=== PATIENT | male | born 1960 | race Caucasian/White ===

== ENCOUNTER 2024-04-01 13:02 | Emergency (ER) | payer OTHER, SELFPAY ==
[2024-04-01] VITALS (14 sets, daily range): BP systolic 120–127; BP diastolic 64–78; PULSE 57–115; RESP 10–21; TEMP 36.4–36.6; O2SAT 96–100
--- NOTE | 2024-04-01 13:00 | RT.EKG_ITS ---
APPROVED REPORT Exam: Resting ECG Reason for Exam: dizzy/syncope Patient Location: E HR:62 bpm ECG Measurements Heart Rate 62 AXIS PA 179 P 17 QRSd 79 QRS -11 QT 404 T 41 QTc 411 Conclusion Sinus rhythm...normal P axis, V-rate 60- 99 I have reviewed and interpreted ECG and agree with software generated interpretation.
--- NOTE | 2024-04-01 13:30 | DI.CT_ITS ---
Exam(s) CT BRAIN NECK CTA EXAM: CT BRAIN NECK CTA CLINICAL HISTORY: Dizzy, vertigo, evaluate for cerebellar infarct. TECHNIQUE: Imaging Protocol: Axial CT angiography was performed with multi-slice acquisition and mu lti-planar and/or 3D reconstructions. CONTRAST MATERIAL: Intravenous: Omnipaque 350 Contrast volume:structured data in ml COMPARISON: No exams were available for comparison FINDINGS: CTA Neck W: Aortic arch anatomy: The aortic arch anatomy is conventional and there is no significant stenosis at the origin of the great vessels off of the aortic arch. No intimal flap evident. Anterior circulation: Both common carotid arteries ascend with normal luminal diameters. At the level the carotid bulbs and proximal internal carotid arteries there is minimal plaque without hemodynamically significant stenosis evident. Internal carotid arteries in the upper neck are also nicely patent. Posterior circulation: Both vertebral arteries originate in conventional fashion off of the subclavian arteries and there is no obvious stenosis at the origin of the vertebral arteries. Both vertebral arteries exhibit normal luminal diameters within the foramen transversarium. The left vertebral artery is dominant. No evidence of vertebral artery thrombosis nor dissection. Both vertebral arteries contribute to the formation of the basilar artery at the skull base. CTA Brain W: Anterior circulation: Both internal carotid arteries are patent in the skull base-carotid canals as well as within the cave rnous sinuses. The supraclinoid aspects of the ICAs are patent. Both A1 segments are patent as are the anterior cer ebral arteries and there is no evidence of aneurysm at the level of the anterior communicating artery . Both middle cerebral arteries are patent with no evidence of significant stenosis nor intraluminal th rombus. There also no aneurysms of these vessels. Posterior circulation: The basilar artery ascends in the midline. Distally it gives off patent bilateral superior cerebella r arteries. Above this level the basilar artery terminates as patent bilateral posterior cerebral arteries. There is no evidence of aneurysm at the tip of the basilar artery nor elsewhere in the [id number] is. CT BRAIN: There is no evidence of intracranial hemorrhage, mass effect, or shift of midline structures. There are no extra-axial fluid collections. Ventricles are not enlarged or shifted. There are no ring enh ancing lesions in the brain and no abnormal meningeal enhancement. IMPRESSION: 1. Patent carotid arteries in the neck. No hemodynamically significant stenosis. 2. Patent vertebral arteries. 3. Patent intracranial arteries. 4. No significant acute intracranial findings. No ring enhancing lesions in the brain nor abnormal m eningeal enhancement. No aneurysms and no evidence of vascular malformation. Report called by myself to ER physician 04/01/2024 at 3:15 p.m. RADIATION DOSE DELIVERED: 2,250.82mGy.cm Total DLP DATA REPOSITORY: All CT scans at this facility are submitted to the National Radiology Data Registry (NRDR) Dose Index Registry (DIR) with the [employer] (A[employer]). RADIATION OPTIMIZATION: All CT scans at this facility use at least one of these dose optimization te chniques: automated exposure control; mA and/or kV adjustment per patient size (includes targeted exa ms where dose is matched to clinical indication); or iterative reconstruction.
[2024-04-01 13:46] LABS: Abs Immature Grans 0.02 10^3/uL (0.0-0.06); Absolute Basophil Count 0.02 10^3/uL (0.0-0.2); Absolute Eosinophil Count 0.15 10^3/uL (0.0-0.7); Absolute Lymphocyte Count 1.39 10^3/uL (1.2-3.4); Absolute Monocyte Count 0.43 10^3/uL (0.1-0.8); Absolute Neutrophil Count 3.97 10^3/uL (1.2-6.7); Basophils % 0.3 %; Eosinophils % 2.5 %; HCT 42.3 % (40.0-50.0); HGB 14.7 g/dL (13.5-17.5); Immature Grans % 0.3 %; Lymphocytes % 23.2 %; MCH 30.7 pg (27.0-33.0); MCHC 34.8 % (32.0-36.0); MCV 88 fL (80-95); Monocytes % 7.2 %; Neutrophils % 66.5 %; Platelet Count 169 10^3/uL (130-400); RBC 4.79 10^6/uL (4.36-5.78); RDW 13.2 % (11.8-14.1); RDW-SD 43.1 fL; WBC 5.98 10^3/uL (4.4-10.8)
[2024-04-01 14:03] LABS: ALT 31 U/L (16-63); AST 17 U/L (15-37); Albumin 3.6 g/dL (3.4-5.0); Alkaline Phosphatase 75 U/L (46-116); Anion Gap 4.5 mmol/L (3-11); BUN 17 mg/dL (7-18); CO2 29.5 mmol/L (21.0-32.0); CREATININE 0.9 mg/dL (0.70-1.30); Calcium 8.9 mg/dL (8.5-10.1); Chloride 104 mmol/L (98-107); Estimated GFR 95.97 (mL/min/1.73m2); Glucose 116 mg/dL (74-106); Potassium 4.1 mmol/L (3.5-5.1); Sodium 138 mmol/L (136-145); Total Protein 6.8 g/dL (6.4-8.2); Troponin I 4 ng/L (<or=76)
[2024-04-01] MEDS: Omnipaque 350 MG/ML 100 ML BTL IJ (14:03)
[2024-04-01] MEDS: Normal Saline - Diluent 50 ML VIAL IJ (14:05)
[2024-04-01 14:10] LABS: INR 1.1 (0.9-1.1); PTT Activated 25.3 sec (23.6-32.8); Prothrombin Time 10.8 sec (9.1-11.1)
--- NOTE | 2024-04-01 14:12 | ED.GENADUL_ITS ---
Discharge Plan Disposition Patient Disposition: Home Condition: Good Discharge Details Clinical Impression: Peripheral vertigo Primary Care Provider: Regine Velarde ED Provider: Davide Oquendo Home Meds and New Rx's Prescriptions: New meclizine 25 mg tablet 25 mg PO BID PRNQty: 30 0RF No Action acetaminophen 325 mg capsule 325 mg PO ONCE PRN Allergy Relief (loratadine) 10 mg capsule 10 mg PO DAILY alprostadil 40 mcg kit 1.25 mcg intra-cavernosal ONCE cholestyramine (with sugar) 4 gram powder in packet 1 packet PO ONCE PRN lidocaine [Lidoderm] 5 % adhesive patch,medicated 1 patch topical DAILY Rx Instructions: leave on most painful area for up to 12 hrs duloxetine 60 mg capsule,delayed release(DR/EC) 60 mg PO DAILY pregabalin 200 mg capsule 200 mg PO DAILY pregabalin 100 mg capsule 100 mg PO DAILY dicyclomine 10 mg capsule 10 mg PO HS cyclobenzaprine 10 mg tablet 10 mg PO HS loperamide [Imodium A-D] 2 mg capsule 2 mg PO Q4H PRN Rx Instructions: administer after each loose stool until symptoms controlled; do not exceed 8 mg per 24 hrs ketorolac 10 mg tablet 10 mg PO QID PRN Rx Instructions: maximum total duration of 5 days from all oral, intranasal, or parenteral formulations eszopiclone [Lunesta] 3 mg tablet 3 mg PO QHS eszopiclone [Lunesta] 3 mg tablet 3 mg PO QHS meloxicam 15 mg tablet 15 mg PO DAILY PRN nortriptyline 25 mg capsule 25 mg PO QHS omeprazole 40 mg capsule,delayed release(DR/EC) 40 mg PO BID Pepto-Bismol Ultra 525 mg tablet 525 mg PO Q1H PRN Rx Instructions: do not exceed 8 doses in a 24 hour period Nasal Decongestant (pseudoeph) 30 mg capsule (abuse-resistant) 30 mg PO ONCE simethicone [Gas Relief (simethicone)] 125 mg capsule 125 mg PO TID-QID PRN tadalafil 20 mg tablet 20 mg PO DAILY PRN Rx Instructions: administer approximately 30min before sexual activity; do not use more than 1 dose per 24hrs tramadol 50 mg tablet 100 mg PO BID PRN Discharge Instructions Instructions: Vertigo ED Additional Instructions: At this time your CT scan shows no evidence of stroke or other significant abnormality. Your laboratory workup is returned very reassuring. Your symptoms appear consistent with peripheral vertigo. Please avoid excessive caffeine use, please stick with a low-salt diet. Please stay well-hydrated. Please take the meclizine as prescribed. If you notice any worsening of your symptoms, or any new symptoms such as vomiting, diarrhea, fever, chills, shortness of breath, chest pain, numbness, weakness, or fainting , please return immediately to the emergency department for reevaluation. Please follow up with your primary care provider as soon as possible for reassessment and reevaluation. As always, it was a pleasure participating in your medical care today. Referrals: Regine Velarde [Primary Care Provider] - [facility] General Date/Time Provider Initiated Documentation: 04/01/24 13:04 . HPI Narrative: 63-year-old male with a past medical history of chronic tinnitus, diabetes mellitus, depression, GERD, obstructive sleep apnea, irritable bowel syndrome, who presents today for evaluation of dizziness. Patient states that last night he felt slightly dizzy, he went to bed without any complication but felt that he was tossing and turning throughout the night secondary to some mild persistent dizziness. When he awoke this morning he was significantly dizzy with notable room spinning sensation. He tried to get up to adjust one of the windows and ended up falling. He is uncertain if he hit his head or not. He does not recall if he lost consciousness. Since then patient has noticed continued room spinning sensation for the last few hours. Symptoms are made worse when he turns his head moves or lies down flat. It seems to be equivalent both for the left and the right. He denies any difficulty actually ambulating, was able to take a shower and dress himself on his own without significant difficulty. He has chronic tinnitus, does not admit to any worsening of this. He denies any recent shots, vaccines, or viral upper respiratory like illnesses. He denies any severe headache or vision changes. He states that the dizziness is described as a room spinning sensation on a horizontal. Related Data Home Medications ?Medication ?Instructions ?Recorded ?Confirmed bismuth subsalicylate 525 mg 525 mg PO Q1H PRN 09/03/23 04/01/24 tablet (Pepto-Bismol Ultra) cyclobenzaprine 10 mg tablet 10 mg PO HS 09/03/23 04/01/24 dicyclomine 10 mg capsule 10 mg PO HS 09/03/23 04/01/24 eszopiclone 3 mg tablet (Lunesta) 3 mg PO QHS 09/03/23 04/01/24 eszopiclone 3 mg tablet (Lunesta) 3 mg PO QHS 09/03/23 04/01/24 ketorolac 10 mg tablet 10 mg PO QID PRN 09/03/23 04/01/24 loperamide 2 mg capsule (Imodium 2 mg PO Q4H PRN 09/03/23 04/01/24 A-D) meloxicam 15 mg tablet 15 mg PO DAILY PRN 09/03/23 04/01/24 nortriptyline 25 mg capsule 25 mg PO QHS 09/03/23 04/01/24 omeprazole 40 mg capsule,delayed 40 mg PO BID 09/03/23 04/01/24 release pseudoephedrine HCl 30 mg capsule 30 mg PO ONCE 09/03/23 04/01/24 (abuse-resistant) (Nasal Decongestant (pseudoephedrine)) simethicone 125 mg capsule (Gas 125 mg PO TID-QID PRN 09/03/23 04/01/24 Relief (simethicone)) tadalafil 20 mg tablet 20 mg PO DAILY PRN 09/03/23 04/01/24 tramadol 50 mg tablet 100 mg PO BID PRN 09/03/23 04/01/24 acetaminophen 325 mg capsule 325 mg PO ONCE PRN 03/09/24 04/01/24 alprostadil 40 mcg intracavernosal 1.25 mcg intra-cavernosal ONCE 03/09/24 04/01/24 kit cholestyramine (with sugar) 4 gram 1 packet PO ONCE PRN 03/09/24 04/01/24 powder for susp in a packet duloxetine 60 mg capsule,delayed 60 mg PO DAILY 03/09/24 04/01/24 release lidocaine 5 % topical patch 1 patch topical DAILY 03/09/24 04/01/24 (Lidoderm) loratadine 10 mg capsule (Allergy 10 mg PO DAILY 03/09/24 04/01/24 Relief (loratadine)) meclizine 25 mg tablet 25 mg PO BID PRN #30 tabs 04/01/24 pregabalin 100 mg capsule 100 mg PO DAILY 04/01/24 04/01/24 pregabalin 200 mg capsule 200 mg PO DAILY 04/01/24 04/01/24 Previous Rx's ?Medication ?Instructions ?Recorded meclizine 25 mg tablet 25 mg PO BID PRN #30 tabs 04/01/24 Allergies Allergy/AdvReac Type Severity Reaction Status Date / Time metformin Allergy Mild Other (See Verified 04/01/24 13:08 Comment) General Stated Complaint: GenMedical NABEEL: 3 Exam Narrative Exam Narrative: 1.Const: Well-nourished, Well-developed, appearing stated age 2.Eyes: PERRL, no conjunctival injection, and symmetrical lids. Fatigable horizontal nystagmus. Which appears to be more pronounced on the right. No vertical or rotatory nystagmus. Positive head impulse test both the left and the right. Negative test of skew for any vertical correction. 3.ENT: Atraumatic external nose and ears. Moist MM. Neck: Symmetric, trachea midline, No thyromegaly. 4.CVS: +S1/S2, Peripheral pulses 2+ and equal in all extremities. Brisk capillary refill in all extremities. 5.RESP: Unlabored respiratory effort. Clear to auscultation bilaterally. No wheezes rales or rhonchi 6.GI: Soft, Nontender/Nondistended, No hepatosplenomegaly. No guarding or rebound. 7.MSK: Normocephalic/Atraumatic, Extremities w/o deformity or ttp No cyanosis or clubbing, Normal movement of all extremities 8.Skin: Warm, Dry. No rashes or lesions. 9.Neuro: poultry eviscerator II-XII grossly intact. Sensation grossly intact, no focal neurologic deficits. all 6 cardinal planes of vision are fully intact. No evidence of rotatory or vertical nystagmus. The patient demonstrated a normal itfwnj-tcng-tsofuz, good dexterity. There was no evidence of dysdiadochokinesia. Patient was able to ambulate without difficulty. There was no wide-based gait. Kkgs-qr-ddsk testing was normal. Sensation was intact bilaterally as well as muscle strength bilaterally for all extremities. Patient was able to verbalize butter cup with no slurring, or miss pronunciation.. 10.Psych: (AAO) x3. Appropriate mood and affect Course Vital Signs Vital signs: Vital Signs Temperature 36.6 C 04/01/24 13:03 Pulse 66 04/01/24 13:03 Respiratory Rate 16 04/01/24 13:03 Blood Pressure 127/78 04/01/24 13:03 Pulse Oximetry 98 04/01/24 13:03 Temperature 36.4 C L 04/01/24 13:40 Temperature Source Temporal Artery Scan 04/01/24 13:40 Pulse 65 04/01/24 13:40 Pulse 60 04/01/24 13:30 Respiratory Rate 18 04/01/24 13:40 Respiratory Effort Normal, Short of Breath 04/01/24 13:23 Respiratory Depth Normal 04/01/24 13:23 Respiratory Pattern Normal 04/01/24 13:23 Blood Pressure 127/78 04/01/24 13:03 Blood Pressure Position Sitting 04/01/24 13:03 Pulse Oximetry 97 04/01/24 13:40 Oxygen Delivery Method Room Air 04/01/24 13:40 Oxygen Flow Rate 0 04/01/24 13:03 Pain Level 8 04/01/24 13:40 Lab/Test Results Lab/Test Results: Laboratory Tests Range/Units 04/01/24 13:37 WBC (4.4-10.8) 10^3/uL 5.98 RBC (4.36-5.78) 10^6/uL 4.79 Hgb (13.5-17.5) g/dL 14.7 Hct (40.0-50.0) % 42.3 MCV (80-95) fL 88 MCH (27.0-33.0) pg 30.7 MCHC (32.0-36.0) % 34.8 RDW (11.8-14.1) % 13.2 Plt Count (130-400) 10^3/uL 169 MPV (8.0-11.0) fL 9.0 Immature Gran % % 0.3 Neutrophils % % 66.5 Lymphocytes % % 23.2 Monocytes % % 7.2 Eosinophils % % 2.5 Basophils % % 0.3 Nucleated RBC % (0.0-0.3) % 0.0 Absolute Neutrophils (1.2-6.7) 10^3/uL 3.97 Absolute Lymphocytes (1.2-3.4) 10^3/uL 1.39 Absolute Monocytes (0.1-0.8) 10^3/uL 0.43 Absolute Eosinophils (0.0-0.7) 10^3/uL 0.15 Absolute Basophils (0.0-0.2) 10^3/uL 0.02 PT (9.1-11.1) sec 10.8 INR (0.9-1.1) 1.1 APTT (23.6-32.8) sec 25.3 Sodium (136-145) mmol/L 138 Potassium (3.5-5.1) mmol/L 4.1 Chloride (98-107) mmol/L 104 Carbon Dioxide (21.0-32.0) mmol/L 29.5 Anion Gap (3-11) mmol/L 4.5 BUN (7-18) mg/dL 17 Creatinine (0.70-1.30) mg/dL 0.9 Est GFR (CKD-EPI 2020) (mL/min/1.73m2) 95.97 Glucose (74-106) mg/dL 116 H Calcium (8.5-10.1) mg/dL 8.9 Total Bilirubin (0.2-1.0) mg/dL 0.70 AST (15-37) U/L 17 ALT (16-63) U/L 31 Alkaline Phosphatase (46-116) U/L 75 Troponin I (<or=76) ng/L 4 Total Protein (6.4-8.2) g/dL 6.8 Albumin (3.4-5.0) g/dL 3.6 Medical Decision Making 63-year-old male with a past medical history of chronic tinnitus, diabetes mellitus, depression, GERD, obstructive sleep apnea, irritable bowel syndrome, who presents today for evaluation of dizziness. Patient states that last night he felt slightly dizzy, he went to bed without any complication but felt that he was tossing and turning throughout the night secondary to some mild persistent dizziness. When he awoke this morning he was significantly dizzy with notable room spinning sensation. He tried to get up to adjust one of the windows and ended up falling. He is uncertain if he hit his head or not. He does not recall if he lost consciousness. Since then patient has noticed continued room spinning sensation for the last few hours. Symptoms are made worse when he turns his head moves or lies down flat. It seems to be equivalent both for the left and the right. He denies any difficulty actually ambulating, was able to take a shower and dress himself on his own without significant difficulty. He has chronic tinnitus, does not admit to any worsening of this. He denies any recent shots, vaccines, or viral upper respiratory like illnesses. He denies any severe headache or vision changes. He states that the dizziness is described as a room spinning sensation on a horizontal. Exam demonstrates well-appearing male, patient has horizontal nystagmus which slightly appears bidirectional but may be slightly worse to the right. Head impulse test is positive bilaterally, negative test of skew. Melonie-Hallpike was performed and is notably positive, especially with posterior movement. Clementina maneuver was not successful in alleviating his symptoms. Concern for peripheral vertigo, potentially labyrinthitis with a bilateral component, however cerebellar infarct is on the differential but much less likely. BPPV is also high on the differential. Will give meclizine, rehydrate, give CT CTA of the brain, monitor closely and reassess. 3:25 PM On reassessment patient is feeling much better. Dizziness is notably improved after meclizine. Patient did get up and ambulated well throughout the department without any signs of ataxia. Minimal horizontal nystagmus remains. Patient has been able to tolerate p.o. CT imaging has returned, no evidence of significant atherosclerotic disease. No evidence of cerebellar or intracranial infarct. No other significant abnormalities noted at this time. Patient otherwise looks clinically well. No evidence to suggest central etiology. Patient will be discharged home with meclizine. Recommend low-salt diet, avoidance of excessive caffeine, and continue meclizine use. Discussed red flags which to return. I have extensively reviewed the treatment plan and discharge instructions with the patient. I have addressed all patient concerns at this time. The patient was made aware of what symptoms to monitor for that would warrant a return to the emergency department. Discussed the plan with the patient, they demonstrate verbal understanding and agreement with our assessment and plan at this time. The documentation in this chart was dictated using [employer] dictation software. Please excuse any dictation errors. FINDINGS: CTA Neck W: Aortic arch anatomy: The aortic arch anatomy is conventional and there is no significant stenosis at the origin of the great vessels off of the aortic arch. No intimal flap evident. Anterior circulation: Both common carotid arteries ascend with normal luminal diameters. At the level the carotid bulbs and proximal internal carotid arteries there is minimal plaque without hemodynamically significant stenosis evident. Internal carotid arteries in the upper neck are also nicely patent. Posterior circulation: Both vertebral arteries originate in conventional fashion off of the subclavian arteries and there is no obvious stenosis at the origin of the vertebral arteries. Both vertebral arteries exhibit normal luminal diameters within the foramen transversarium. The left vertebral artery is dominant. No evidence of vertebral artery thrombosis nor dissection. Both vertebral arteries contribute to the formation of the basilar artery at the skull base. CTA Brain W: Anterior circulation: Both internal carotid arteries are patent in the skull base-carotid canals as well as within the cavernous sinuses. The supraclinoid aspects of the ICAs are patent. Both A1 segments are patent as are the anterior cerebral arteries and there is no evidence of aneurysm at the level of the anterior communicating artery. Both middle cerebral arteries are patent with no evidence of significant stenosis nor intraluminal thrombus. There also no aneurysms of these vessels. Posterior circulation: The basilar artery ascends in the midline. Distally it gives off patent bilateral superior cerebellar arteries. Above this level the basilar artery terminates as patent bilateral posterior cerebral arteries. There is no evidence of aneurysm at the tip of the basilar artery nor elsewhere in the [id number]. CT BRAIN: There is no evidence of intracranial hemorrhage, mass effect, or shift of midline structures. There are no extra-axial fluid collections. Ventricles are not enlarged or shifted. There are no ring enhancing lesions in the brain and no abnormal meningeal enhancement. IMPRESSION: 1. Patent carotid arteries in the neck. No hemodynamically significant stenosis. 2. Patent vertebral arteries. 3. Patent intracranial arteries. 4. No significant acute intracranial findings. No ring enhancing lesions in the brain nor abnormal meningeal enhancement. No aneurysms and no evidence of vascular malformation. Quality:SDOH Health Related Social Needs: No Data to Display PFSH All Active Problems (Updated 04/01/24 @ 15:27 by Davide Oquendo DO) Peripheral vertigo (Acute) Diabetes type 2 (Acute) Chronic low back pain (Chronic) Idiopathic small fiber peripheral neuropathy (Acute) Medical History Renal stones GERD (gastroesophageal reflux disease) Depression DICK (obstructive sleep apnea) Tinnitus, bilateral Snoring Sleep apnea Paresthesia Lumbar radiculopathy Insomnia History of IBS Hyperlipidemia Erectile dysfunction Degenerative disc disease, lumbar Cervicalgia Surgical History S/P inguinal hernia repair S/P appendectomy Family History Mother Hyperlipidemia Brother , 41 YRS OLD Heart disease HEART ATTACK Social History Smoking/Tobacco Use Status: Never Smoking risk assessment performed?: Yes Alcohol Intake: current Alcohol Intake frequency: holidays/special occasions only Drug use: Never Household members: spouse Number of Children: 2 current occupation: [employer]. 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
[2024-04-01] MEDS: Ondansetron 4 MG/2 ML VIAL IVP (14:27)
[2024-04-01] MEDS: Meclizine 25 MG TAB 50 MG PO (14:27)
[2024-04-01] MEDS: Lactated Ringers 1,000 ML 1000 ML IV (14:27)
[2024-04-01] MEDS: Meclizine 25 MG TAB PO (15:25)
== END 2024-04-01 15:58 | disposition home or self-care (01) ==
PROVIDERS: Emergency Provider Student in an Organized Health Care Education/Training Program; PCP Nurse Practitioner Family
DX: R42 Dizziness and giddiness (principal); R51.9 Headache, unspecified
CPT/HCPCS: 36415; 36416; 70496; 70498; 80053; 82962; 93005; 96361; 96374; 99285; 84484; 85025; 85610; 85730; 93010; 99284; J2405; J3490

== ENCOUNTER 2024-07-30 15:39 | Emergency (ER) | payer OTHER, SELFPAY ==
[2024-07-30] VITALS (15 sets, daily range): BP systolic 123–133; BP diastolic 42–76; PULSE 63–98; RESP 11–16; TEMP 37.2; O2SAT 96–99
--- NOTE | 2024-07-30 16:00 | RT.EKG_ITS ---
APPROVED REPORT Exam: Resting ECG Reason for Exam: syncope Patient Location: E HR:71 bpm ECG Measurements Heart Rate 71 AXIS MN 185 P 36 QRSd 82 QRS 4 QT 377 T 39 QTc 411 Conclusion Sinus rhythm...normal P axis, V-rate 60- 99
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
[2024-07-30 16:35] LABS: Abs Immature Grans 0.02 10^3/uL (0.0-0.06); Absolute Basophil Count 0.02 10^3/uL (0.0-0.2); Absolute Eosinophil Count 0.08 10^3/uL (0.0-0.7); Absolute Lymphocyte Count 1.69 10^3/uL (1.2-3.4); Absolute Neutrophil Count 4.42 10^3/uL (1.2-6.7); Basophils % 0.3 %; Eosinophils % 1.2 %; HCT 38.9 % (40.0-50.0); HGB 13.5 g/dL (13.5-17.5); Immature Grans % 0.3 %; Lymphocytes % 25.1 %; MCH 30.8 pg (27.0-33.0); MCHC 34.7 % (32.0-36.0); MCV 89 fL (80-95); Monocytes % 7.4 %; Neutrophils % 65.7 %; Platelet Count 141 10^3/uL (130-400); RBC 4.39 10^6/uL (4.36-5.78); RDW 12.3 % (11.8-14.1); RDW-SD 39.8 fL; WBC 6.73 10^3/uL (4.4-10.8)
[2024-07-30 16:52] LABS: ALT 26 U/L (16-63); AST 16 U/L (15-37); Albumin 3.6 g/dL (3.4-5.0); Alkaline Phosphatase 70 U/L (46-116); Anion Gap 6.9 mmol/L (3-11); BUN 16 mg/dL (7-18); Bilirubin, Total 0.7 mg/dL (0.2-1.0); CO2 29.1 mmol/L (21.0-32.0); CREATININE 0.9 mg/dL (0.70-1.30); Calcium 8.8 mg/dL (8.5-10.1); Chloride 107 mmol/L (98-107); Estimated GFR 95.37 (mL/min/1.73m2); Glucose 99 mg/dL (74-106); Magnesium 1.9 mg/dL (1.8-2.4); Potassium 3.7 mmol/L (3.5-5.1); Sodium 143 mmol/L (136-145); Total Protein 6.5 g/dL (6.4-8.2); Troponin I 4 ng/L (<or=76)
[2024-07-30 16:56] LABS: INR 1.1 (0.9-1.1); PTT Activated 24.6 sec (20.6-30.2)
--- NOTE | 2024-07-30 16:57 | DI.CT_ITS ---
Exam(s) CT HEAD CERVICAL SPINE WO EXAM: CT HEAD CERVICAL SPINE WO CLINICAL HISTORY: pain s/p fall. TECHNIQUE: Imaging Protocol: Axial computed tomography images with coronal and sagittal reformatted images were created and reviewed COMPARISON: CT CT BRAIN NECK CTA from 04/01/2024 FINDINGS: Head CT Ventricles and Extra axial spaces: Normal in size and morphology for the patient's age. Hemorrhage: None. Cerebral parenchyma: No evidence of mass or acute infarct. Midline shift: None. Brainstem/Cerebellum: Normal. Calvarium: Normal. Visualized Paranasal sinuses/Mastoids: Clear. Soft tissues: Unremarkable. Cervical Spine CT BONES: Vertebral body heights are maintained. Alignment is normal. There is no evidence of acute frac ture. Minimal degenerative disc changes and facet degenerative changes are seen . SOFT TISSUES: No paraspinal hematoma. The airway appears intact. No pneumothorax is seen at the lung apices. IMPRESSION: Head CT: No acute abnormality. C-spine CT: no acute abnormality. RADIATION DOSE DELIVERED: Total DLP DATA REPOSITORY: All CT scans at this facility are submitted to the National Radiology Data Registry (NRDR) Dose Index Registry (DIR) with the [employer] (ACR). RADIATION OPTIMIZATION: All CT scans at this facility use at least one of these dose optimization te chniques: automated exposure control; mA and/or kV adjustment per patient size (includes targeted exa ms where dose is matched to clinical indication); or iterative reconstruction.
--- NOTE | 2024-07-30 17:12 | DI.RAD_ITS ---
Exam(s) XR FEMUR LT EXAM: XR FEMUR LT CLINICAL HISTORY: pain s/p fall. TECHNIQUE: 2D digital imaging was performed. Three views. COMPARISON: None. FINDINGS: BONES: No acute fracture is present. No bony destructive lesion is seen. JOINTS: No dislocation present. The knee and hip joints are unremarkable as visualized. SOFT TISSUE: Normal. IMPRESSION: No evidence of acute fracture, dislocation, or subluxation. DATA REPOSITORY: RADIATION DOSE DELIVERED:
--- NOTE | 2024-07-30 17:13 | DI.RAD_ITS ---
Exam(s) XR SHOULDER RT COMPLETE 2+V EXAM: XR SHOULDER RT COMPLETE 2+V CLINICAL HISTORY: pain s/p fall. TECHNIQUE: 2D digital imaging was performed. Five views. COMPARISON: No exams were available for comparison FINDINGS: BONES: No acute fracture is present. No bony destructive lesion is seen. JOINTS: No dislocation present. Mild spurring at the AC joint and glenohumeral joint. SOFT TISSUE: Normal. IMPRESSION: No acute abnormality. DATA REPOSITORY: RADIATION DOSE DELIVERED:
[2024-07-30 18:18] LABS: Troponin I 4 ng/L (<or=76)
[2024-07-30] MEDS: ACETAMINOPHEN 1,000 MG/100 ML BTL 1000 MG (18:21)
== END 2024-07-30 18:54 | disposition home or self-care (01) ==
PROVIDERS: Emergency Provider Emergency Medicine; PCP Nurse Practitioner Family
DX: R55 Syncope and collapse (principal); S09.8XXA Other specified injuries of head, initial encounter; S40.011A Contusion of right shoulder, initial encounter; S70.12XA Contusion of left thigh, initial encounter; E78.5 Hyperlipidemia, unspecified; E11.9 Type 2 diabetes mellitus without complications; W20.8XXA Other cause of strike by thrown, projected or falling object, initial encounter; Y93.89 Activity, other specified; Y92.017 Garden or yard in single-family (private) house as the place of occurrence of the external cause
CPT/HCPCS: 36415; 73552; 80053; 93005; 99285; 70450; 72125; 73030; 83735; 84484; 85025; 85610; 85730; 93010; 99284; J0131